=== PATIENT | female | born 1985 | race Caucasian/White ===

== ENCOUNTER 2017-10-25 09:16 | Outpatient (CLI) | payer OTHER | END 2017-10-25 09:25 | disposition home or self-care (01) | LOC: SONOGRAMA 09:16 | DX: N92.1 Excessive and frequent menstruation with irregular cycle (principal) ==

== ENCOUNTER 2018-09-09 10:39 | Outpatient (CLI) | payer OTHER | END 2018-09-09 10:42 | disposition home or self-care (01) | LOC: SONOGRAMA 10:39 | DX: E04.1 Nontoxic single thyroid nodule (principal) ==

== ENCOUNTER 2019-02-12 12:33 | Inpatient (IN) | payer OTHER ==
[~2019-02-12] VITALS: Ht 170.2 cm; Wt 80.7 kg
[2019-02-12] MEDS ORDERED: ALLEGRA ALLERGY60 MG PO (14:37)
[2019-02-20] MEDS ORDERED: PERCOCET 5-3251 EACH PO (10:27)
[2019-02-20] MEDS ORDERED: CALCITRIOL0.5 MCG PO (10:28)
[2019-02-20] MEDS ORDERED: SYNTHROID125 MCG PO (10:35)
== END 2019-02-20 13:06 | disposition home or self-care (01) | DRG 627 ==
LOC: O/R 02-19 08:19 → SURH 02-19 16:37
PROVIDERS: ADMIT Surgery
PROC: 0GTK0ZZ Resection of Thyroid Gland, Open Approach (ICD-10-PCS; principal; 2019-02-19 13:30)
DX: C73 Malignant neoplasm of thyroid gland (principal); J45.998 Other asthma

== ENCOUNTER 2020-10-06 18:56 | Emergency (ER) | payer OTHER ==
[~2020-10-06] VITALS: Ht 172.7 cm; Wt 76.2 kg
[~2020-10-06 18:56] MED LIST: ALLEGRA ALLERGY60 MG PO; CALCITRIOL0.5 MCG PO; PERCOCET 5-3251 EACH PO; SYNTHROID125 MCG PO
[2020-10-06] MEDS ORDERED: SYNTHROID150 MCG PO (19:08)
[2020-10-07] MEDS ORDERED: NAPROXEN375 MG PO (00:02)
[2020-10-07] MEDS ORDERED: PEPCID AC10 MG PO (00:02)
[2020-10-07] MEDS ORDERED: ZOFRAN4 MG PO (00:04)
== END 2020-10-07 00:45 | disposition home or self-care (01) ==
LOC: ER 18:56
DX: G43.109 Migraine with aura, not intractable, without status migrainosus (principal); F12.929 Cannabis use, unspecified with intoxication, unspecified; T40.7X5A Adverse effect of cannabis (derivatives), initial encounter; Y92.89 Other specified places as the place of occurrence of the external cause

== ENCOUNTER 2021-05-24 10:13 | Inpatient (IN) | payer OTHER ==
[~2021-05-24] VITALS: Ht 170.2 cm; Wt 73.9 kg
[~2021-05-24 10:13] MED LIST changes: +NAPROXEN375 MG PO; +PEPCID AC10 MG PO; +SYNTHROID150 MCG PO; +ZOFRAN4 MG PO
== END 2021-06-07 13:45 | disposition home or self-care (01) | DRG 373 ==
LOC: ER 10:13 → SURG 05-25 00:17 → SEC-K 05-25 00:17 → SURG 05-25 01:02
PROVIDERS: ADMIT Surgery; ATTEND Surgery
PROC: 0W9G30Z Drainage of Peritoneal Cavity with Drainage Device, Percutaneous Approach (ICD-10-PCS; principal; 2021-05-25)
PROC: 0W9J30Z Drainage of Pelvic Cavity with Drainage Device, Percutaneous Approach (ICD-10-PCS; 2021-05-25)
PROC: 0W9J30Z Drainage of Pelvic Cavity with Drainage Device, Percutaneous Approach (ICD-10-PCS; 2021-06-02)
PROC: 0YP Anatomical Regions, Lower Extremities, Removal (ICD-10-PCS; 2021-06-02)
PROC: 0WPJX0Z Removal of Drainage Device from Pelvic Cavity, External Approach (ICD-10-PCS; 2021-06-02)
DX: K35.33 Acute appendicitis with perforation, localized peritonitis, and gangrene, with abscess (principal); E03.8 Other specified hypothyroidism; Z20.822 Contact with and (suspected) exposure to COVID-19; B96.20 Unspecified Escherichia coli [E. coli] as the cause of diseases classified elsewhere; Z85.850 Personal history of malignant neoplasm of thyroid

== ENCOUNTER 2021-06-15 11:17 | Outpatient (CLI) | payer OTHER | END 2021-06-15 11:20 | disposition home or self-care (01) | LOC: LAB 11:17 | PROVIDERS: ATTEND Radiology Diagnostic Radiology | DX: R10.10 Upper abdominal pain, unspecified (principal) ==

== ENCOUNTER 2021-06-17 13:08 | Emergency (ER) | payer OTHER ==
[~2021-06-17] VITALS: Ht 170.2 cm; Wt 73.9 kg
== END 2021-06-17 22:13 | disposition home or self-care (01) ==
LOC: ER 13:08
DX: K52.89 Other specified noninfective gastroenteritis and colitis (principal); D72.829 Elevated white blood cell count, unspecified; E03.9 Hypothyroidism, unspecified; Z03.818 Encounter for observation for suspected exposure to other biological agents ruled out

== ENCOUNTER 2021-07-06 09:02 | Outpatient (CLI) | payer OTHER | END 2021-07-06 09:14 | disposition home or self-care (01) | LOC: TOM 09:02 | PROVIDERS: ATTEND Surgery | DX: K76.89 Other specified diseases of liver (principal); K35.33 Acute appendicitis with perforation, localized peritonitis, and gangrene, with abscess ==

== ENCOUNTER 2021-07-21 08:38 | Outpatient (CLI) | payer OTHER ==
[2021-07-27] MEDS ORDERED: ALLEGRA-D 12 H1 EACH PO (11:27)
[2021-07-27] MEDS ORDERED: CALTRATE 600 +1 EACH PO (11:27)
== END 2021-07-21 08:41 | disposition home or self-care (01) ==
LOC: SONOGRAMA 08:38
PROVIDERS: ATTEND Pathology Anatomic Pathology & Clinical Pathology
DX: R22.1 Localized swelling, mass and lump, neck (principal)

== ENCOUNTER 2021-08-02 06:05 | Inpatient (IN) | payer OTHER ==
[~2021-08-02] VITALS: Ht 170.2 cm; Wt 73.9 kg
[~2021-08-02 06:05] MED LIST changes: +ALLEGRA-D 12 H1 EACH PO; +CALTRATE 600 +1 EACH PO
[2021-08-02] MEDS ORDERED: INTESTINEX680 M1 (15:20)
[2021-08-02] MEDS ORDERED: ATENOLOL25 MG (15:20)
== END 2021-08-17 12:47 | disposition home or self-care (01) | DRG 330 ==
LOC: CIR.AMB 06:05 → SURG 15:00
PROVIDERS: ADMIT Surgery; ATTEND Surgery
PROC: 0WJJ4ZZ Inspection of Pelvic Cavity, Percutaneous Endoscopic Approach (ICD-10-PCS; 2021-08-02)
PROC: 0DQH4ZZ Repair Cecum, Percutaneous Endoscopic Approach (ICD-10-PCS; principal; 2021-08-02 08:30)
PROC: 02HV33Z Insertion of Infusion Device into Superior Vena Cava, Percutaneous Approach (ICD-10-PCS; 2021-08-03)
PROC: 4A12X4Z Monitoring of Cardiac Electrical Activity, External Approach (ICD-10-PCS; 2021-08-05)
PROC: 30233N1 Transfusion of Nonautologous Red Blood Cells into Peripheral Vein, Percutaneous Approach (ICD-10-PCS; 2021-08-07)
DX: K35.33 Acute appendicitis with perforation, localized peritonitis, and gangrene, with abscess (principal); K91.71 Accidental puncture and laceration of a digestive system organ or structure during a digestive system procedure; D62 Acute posthemorrhagic anemia; N92.1 Excessive and frequent menstruation with irregular cycle; R00.0 Tachycardia, unspecified; E03.9 Hypothyroidism, unspecified

== ENCOUNTER 2021-09-21 07:45 | Day surgery (SDC) | payer OTHER ==
[~2021-09-21 07:45] MED LIST changes: +ATENOLOL25 MG; +INTESTINEX680 M1
== END 2021-09-21 14:20 | disposition home or self-care (01) ==
LOC: AMB-ENDOS 07:45
PROVIDERS: ATTEND Surgery
DX: K52.89 Other specified noninfective gastroenteritis and colitis (principal); K64.8 Other hemorrhoids; Z20.822 Contact with and (suspected) exposure to COVID-19

== ENCOUNTER 2021-10-13 19:22 | Emergency (ER) | payer OTHER ==
[~2021-10-13] VITALS: Ht 170.2 cm; Wt 70.3 kg
== END 2021-10-13 23:15 | disposition home or self-care (01) ==
LOC: ER 19:22
DX: K52.89 Other specified noninfective gastroenteritis and colitis (principal)

== ENCOUNTER 2021-10-15 13:39 | Inpatient (IN) | payer OTHER ==
[~2021-10-15] VITALS: Ht 170.2 cm; Wt 70.3 kg
[2021-10-15] MEDS ORDERED: DICYCLOMINE HCL20 MG PO (14:39)
[2021-10-15] MEDS ORDERED: FAMOTIDINE20 MG PO (14:40)
[2021-10-15] MEDS ORDERED: PANTOPRAZOLE SO20 MG PO (14:40)
--- NOTE | 2021-10-15 14:40 | NUR ---
SE RECIBE PACIENTE ALERTA, ORIENTADA X 3 ESFERAS REFIERE TENER DOLOR ABDOMINAL DESDE KALE SE ESTIMAN S/V SE UBICA EN AREA DE OBSERVACION.
--- NOTE | 2021-10-15 15:34 | NUR ---
EVALUA PTE. SE ORIENTA A PTE SOBRE ORDENES MEDICAS Y TRATAMIENTO A SEGUIR. SE EXTRAEN MUESTRAS, SE CANALIZA PTE Y SE ADMINISTRAN MEDICAMENTOS BAJO MEDIDAS ASEPTICAS POR TULIO. SE LE ENTREGA A PTE U/A PARA COLECCION. SE COORDINA CT DE PTE.
--- NOTE | 2021-10-15 19:07 | NUR ---
SE REALIZA EKG MUESTRAS DE IRENE CULTIVOS DE IRENE Y ADMINISTRACION DE MEDICAMENTOS. EKG EVALUADO POR DR. RILEY.
[2021-10-24] MEDS ORDERED: INTESTINEX680 M1 (08:35)
[2021-11-08] MEDS ORDERED: INTEGRA PLUS C1 EACH PO (08:53)
== END 2021-11-08 12:12 | disposition home or self-care (01) | DRG 372 ==
LOC: ER 13:39 → SURH 23:45
PROVIDERS: ADMIT Surgery; ATTEND Surgery
PROC: BW21YZZ Computerized Tomography (CT Scan) of Abdomen and Pelvis using Other Contrast (ICD-10-PCS; principal; 2021-10-15)
PROC: 0W9F30Z Drainage of Abdominal Wall with Drainage Device, Percutaneous Approach (ICD-10-PCS; 2021-10-17)
PROC: 02HV33Z Insertion of Infusion Device into Superior Vena Cava, Percutaneous Approach (ICD-10-PCS; 2021-10-17)
PROC: 8E0ZXY6 Isolation (ICD-10-PCS; 2021-10-19)
PROC: BW21Y0Z Computerized Tomography (CT Scan) of Abdomen and Pelvis using Other Contrast, Unenhanced and Enhanced (ICD-10-PCS; 2021-10-23)
PROC: 0W9F30Z Drainage of Abdominal Wall with Drainage Device, Percutaneous Approach (ICD-10-PCS; 2021-10-26)
PROC: 0W9J30Z Drainage of Pelvic Cavity with Drainage Device, Percutaneous Approach (ICD-10-PCS; 2021-10-26)
PROC: BW21ZZZ Computerized Tomography (CT Scan) of Abdomen and Pelvis (ICD-10-PCS; 2021-10-26)
PROC: BU4CZZZ Ultrasonography of Uterus and Ovaries (ICD-10-PCS; 2021-10-27)
PROC: BW21Y0Z Computerized Tomography (CT Scan) of Abdomen and Pelvis using Other Contrast, Unenhanced and Enhanced (ICD-10-PCS; 2021-10-30)
PROC: BW40ZZZ Ultrasonography of Abdomen (ICD-10-PCS; 2021-11-02)
PROC: BW21ZZZ Computerized Tomography (CT Scan) of Abdomen and Pelvis (ICD-10-PCS; 2021-11-07)
PROC: BW21Y0Z Computerized Tomography (CT Scan) of Abdomen and Pelvis using Other Contrast, Unenhanced and Enhanced (ICD-10-PCS; 2021-11-07)
DX: K35.33 Acute appendicitis with perforation, localized peritonitis, and gangrene, with abscess (principal); Z16.12 Extended spectrum beta lactamase (ESBL) resistance; D50.0 Iron deficiency anemia secondary to blood loss (chronic); F12.929 Cannabis use, unspecified with intoxication, unspecified; C80.1 Malignant (primary) neoplasm, unspecified; D63.0 Anemia in neoplastic disease; D63.8 Anemia in other chronic diseases classified elsewhere; D53.0 Protein deficiency anemia; I45.6 Pre-excitation syndrome; K52.89 Other specified noninfective gastroenteritis and colitis; J45.909 Unspecified asthma, uncomplicated; B96.1 Klebsiella pneumoniae [K. pneumoniae] as the cause of diseases classified elsewhere; B95.4 Other streptococcus as the cause of diseases classified elsewhere; E03.8 Other specified hypothyroidism

== ENCOUNTER 2021-12-21 11:30 | Inpatient (IN) | payer OTHER ==
[~2021-12-21] VITALS: Ht 172.7 cm; Wt 63.5 kg
[~2021-12-21 11:30] MED LIST changes: +DICYCLOMINE HCL20 MG PO; +FAMOTIDINE20 MG PO; +INTEGRA PLUS C1 EACH PO; +PANTOPRAZOLE SO20 MG PO
[2021-12-30] MEDS ORDERED: FLONASE16 GM (09:09)
[2021-12-30] MEDS ORDERED: PANTOPRAZOLE SO20 MG (09:09)
[2021-12-30] MEDS ORDERED: FAMOTIDINE20 MG (09:09)
[2022-01-05] MEDS ORDERED: ULTRAM50 MG PO (10:47)
[2022-01-05] MEDS ORDERED: CARAFATE1 GM PO (10:48)
[2022-01-05] MEDS ORDERED: PANTOPRAZOLE SO40 M2 PO (10:49)
[2022-01-05] MEDS ORDERED: CLOTRIMAZOLE10 MG MM (11:27)
== END 2022-01-05 15:32 | disposition home or self-care (01) | DRG 331 ==
LOC: SURH 12-23 11:30 → O/R 12-30 06:06 → SURH 12-30 11:30
PROVIDERS: ADMIT Surgery; ATTEND Surgery
PROC: 0DTF4ZZ Resection of Right Large Intestine, Percutaneous Endoscopic Approach (ICD-10-PCS; principal; 2021-12-30 17:15)
DX: K35.33 Acute appendicitis with perforation, localized peritonitis, and gangrene, with abscess (principal); N73.6 Female pelvic peritoneal adhesions (postinfective); R59.0 Localized enlarged lymph nodes; R19.4 Change in bowel habit; K52.89 Other specified noninfective gastroenteritis and colitis; R10.9 Unspecified abdominal pain; I45.6 Pre-excitation syndrome; I10 Essential (primary) hypertension; Z20.822 Contact with and (suspected) exposure to COVID-19

== ENCOUNTER 2022-04-30 01:05 | Inpatient (IN) | payer OTHER ==
[~2022-04-30] VITALS: Ht 165.1 cm; Wt 59.0 kg
[~2022-04-30 01:05] MED LIST changes: +CARAFATE1 GM PO; +CLOTRIMAZOLE10 MG MM; +FAMOTIDINE20 MG; +FLONASE16 GM; +PANTOPRAZOLE SO20 MG; +PANTOPRAZOLE SO40 M2 PO; +ULTRAM50 MG PO
--- NOTE | 2022-04-30 01:40 | NUR ---
PTE REFIERE DOLOR EN AREA EPIGASTRICA DESDE KALE EN LA MANANA Y VOMITOS X1 EN LA TARDE DE KALE.
== END 2022-05-05 11:41 | disposition home or self-care (01) | DRG 419 ==
LOC: ER 01:05 → MEDJ 13:04
PROVIDERS: ADMIT Internal Medicine; ATTEND Internal Medicine
PROC: BW21ZZZ Computerized Tomography (CT Scan) of Abdomen and Pelvis (ICD-10-PCS; 2022-04-30)
PROC: BF37ZZZ Magnetic Resonance Imaging (MRI) of Pancreas (ICD-10-PCS; 2022-04-30)
PROC: 0FT44ZZ Resection of Gallbladder, Percutaneous Endoscopic Approach (ICD-10-PCS; principal; 2022-05-04)
PROC: BF532Z0 Other Imaging of Gallbladder and Bile Ducts using Fluorescing Agent, Intraoperative (ICD-10-PCS; 2022-05-04)
DX: K80.00 Calculus of gallbladder with acute cholecystitis without obstruction (principal); R10.9 Unspecified abdominal pain; E83.51 Hypocalcemia; E03.9 Hypothyroidism, unspecified; C73 Malignant neoplasm of thyroid gland; I45.6 Pre-excitation syndrome; Z20.822 Contact with and (suspected) exposure to COVID-19

== ENCOUNTER 2024-07-25 08:00 | Outpatient (CLI) | payer OTHER ==
[~2024-07-25] VITALS: Ht 170.2 cm; Wt 83.9 kg
[~2024-07-25 08:00] MED LIST changes: +DICLOFENAC POTA50 MG PO
[2024-07-25 09:48] VITALS: BP 113/77
[2024-07-25 09:49] LABS: HEMATOCRIT 35.8 % (36.0-45.00); HEMOGLOBIN 12.2 g/dL (12.0-15.00); MEAN CELL VOLUME 79.1 fL (80.00-100.00); MEAN CORPUSCULAR HEMOGLOBIN 26.9 pg (27.00-32.0); PLATELET COUNT 307 K/uL (150-450); RED BLOOD COUNT 4.53 M/uL (4.00-6.00); RED CELL DISTRIBUTION WIDTH 15.2 % (11.5-14.5)
[2024-07-25 10:11] LABS: INR 0.97; PARTIAL THROMBOPLASTIN TIME 28.6 SECONDS (22.0-34.0); PROTHROMBIN TIME 10.6 SECONDS (9.0-11.5)
[2024-07-25 10:24] LABS: ALBUMIN 3.8 gm/dL (3.4-5.0); BILIRUBIN TOTAL 1.05 mg/dL (0.3-1.2); CALCIUM 8.4 mg/dL (8.5-10.1); CREATININE SERUM 0.76 mg/dL (0.55-1.02); GFR 83.86; GLOBULINA 3.8 G/DL (2.4-3.5); POTASSIUM 4.24 mEq/L (3.5-5.1); TOTAL PROTEIN 7.6 gm/dL (6.4-8.2)
== END 2024-07-25 08:01 | disposition home or self-care (01) ==
LOC: RAD 08:00 → EDSTATUS 07-30 07:45 → SURH 07-30 07:45 → CIR.AMB 07-30 07:45
PROVIDERS: ATTEND Obstetrics & Gynecology
DX: N83.201 Unspecified ovarian cyst, right side (principal)

== ENCOUNTER 2024-08-27 07:36 | Day surgery (SDC) | payer OTHER ==
[2024-08-22 07:14] LABS: HEMATOCRIT 35.3 % (36.0-45.00); HEMOGLOBIN 12.1 g/dL (12.0-15.00); MEAN CELL VOLUME 79.1 fL (80.00-100.00); MEAN CORPUSCULAR HEMOGLOBIN 27.1 pg (27.00-32.0); MEAN CORPUSCULAR HGB CONC 34.2 g/dl (32.0-36.0); PLATELET COUNT 305 K/uL (150-450); RED BLOOD COUNT 4.46 M/uL (4.00-6.00); RED CELL DISTRIBUTION WIDTH 14.6 % (11.5-14.5)
[2024-08-22 07:24] LABS: INR 0.96; PARTIAL THROMBOPLASTIN TIME 27.9 SECONDS (22.0-34.0); PROTHROMBIN TIME 10.5 SECONDS (9.0-11.5)
[2024-08-22 07:51] LABS: ALBUMIN 3.5 gm/dL (3.4-5.0); BILIRUBIN TOTAL 0.75 mg/dL (0.3-1.2); CALCIUM 8.1 mg/dL (8.5-10.1); CREATININE SERUM 0.86 mg/dL (0.55-1.02); GFR 72.71; GLOBULINA 3.5 G/DL (2.4-3.5); POTASSIUM 3.98 mEq/L (3.5-5.1)
[2024-08-22 12:37] VITALS: BP 113/74
[~2024-08-27] VITALS: Ht 170.2 cm; Wt 80.7 kg
[2024-08-27] MEDS ORDERED: CEFAZOLIN SODIUM 1,000 MG VIAL IV ONE (19:45)
[2024-08-27] MEDS ORDERED: POVIDONE-IODINE 118 ML BOTT TOP ONE (19:45)
[2024-08-27] MEDS ORDERED: SUGAMMADEX SODIUM 200 MG/2 ML VIAL IV ONE (20:30)
[2024-08-27] MEDS ORDERED: PROMETHAZINE HCL 50 MG/ML AMPUL IM ONE (20:45)
[2024-08-27] MEDS ORDERED: MORPHINE SULFATE 4 MG/ML VIAL IV PRN (20:45)
[2024-08-27] MEDS ORDERED: MORPHINE SULFATE 4 MG/ML VIAL IV ONE ×2 (21:00→21:30)
== END 2024-08-27 22:30 | disposition home or self-care (01) ==
LOC: CIR.AMB 07:36
PROVIDERS: ATTEND Obstetrics & Gynecology
DX: N83.8 Other noninflammatory disorders of ovary, fallopian tube and broad ligament (principal); N93.8 Other specified abnormal uterine and vaginal bleeding; R10.2 Pelvic and perineal pain; N83.9 Noninflammatory disorder of ovary, fallopian tube and broad ligament, unspecified; Z88.2 Allergy status to sulfonamides

== ENCOUNTER 2025-03-05 08:16 | Outpatient (CLI) | payer OTHER | END 2025-03-05 08:18 | disposition home or self-care (01) | LOC: SONOGRAMA 08:16 | PROVIDERS: ATTEND Pathology Anatomic Pathology & Clinical Pathology | DX: C73 Malignant neoplasm of thyroid gland (principal); C77.0 Secondary and unspecified malignant neoplasm of lymph nodes of head, face and neck; R59.0 Localized enlarged lymph nodes; E89.0 Postprocedural hypothyroidism ==

== ENCOUNTER 2025-05-23 18:00 | Emergency (ER) | payer OTHER ==
[~2025-05-23] VITALS: Ht 172.7 cm; Wt 79.8 kg
[2025-05-23] MEDS ORDERED: FUSION PLUS CA1 EACH PO (18:23)
[2025-05-23 21:30] LABS: FECAL LEUKOCYTES NEGATIVE (NEGATIVE); ob NEGATIVE (NEGATIVE)
== END 2025-05-23 22:00 | disposition home or self-care (01) ==
LOC: ER 18:00
PROVIDERS: General Practice
DX: K92.1 Melena (principal); Z88.2 Allergy status to sulfonamides; Z91.048 Other nonmedicinal substance allergy status

== ENCOUNTER 2025-06-03 12:30 | Inpatient (IN) | payer OTHER ==
[~2025-06-03] VITALS: Ht 243.8 cm; Wt 76.2 kg
[~2025-06-03 12:30] MED LIST changes: +FUSION PLUS CA1 EACH PO
[2025-06-03 13:11] VITALS: BP 102/65
[2025-06-03 13:38] LABS: RH POSITIVE
[2025-06-10] MEDS ORDERED: BUPIVACAINE HCL/MPF 0.5% 30ML VIAL ONE ×2 (06:56→07:11)
[2025-06-10] MEDS ORDERED: LIDOCAINE HCL 1%/EPINEPHRINE 20ML VIAL IJ ONE ×2 (06:56→07:11)
[2025-06-10] MEDS ORDERED: POVIDONE-IODINE 118 ML BOTT TOP ONE (07:11)
[2025-06-10] MEDS ORDERED: CEFTRIAXONE SODIUM 2,000 MG VIAL ONE (07:12)
[2025-06-10] MEDS ORDERED: METRONIDAZOLE/SODIUM CHLORIDE 500 MG/100 ML PIGGYBACK IV ONE (07:12)
[2025-06-10] MEDS ORDERED: VISTASEAL DUAL APPICATOR 1 EACH APPL TOP ONE (08:00)
[2025-06-10] MEDS ORDERED: THROMBIN,HU/FIBRINOGEN/CALCIUM 10 ML SYRINGE TOP ONE (08:01)
[2025-06-10] MEDS ORDERED: SUGAMMADEX SODIUM 200 MG/2 ML VIAL IV ONE (11:00)
[2025-06-10] MEDS ORDERED: CELECOXIB 200 MG CAPSULE PO STA (11:13)
[2025-06-10] MEDS ORDERED: ONDANSETRON HCL 2 MG/ML VIAL IV SCH (12:00)
[2025-06-10] MEDS ORDERED: ACETAMINOPHEN 325 MG TABLET PO SCH (12:00)
[2025-06-10 12:45] LABS: BASO % 0.5 % (0.1-1.2); EOS # 0.19 (0.04-0.54); EOS % 2.1 % (0.7-7.0); LYMPH # 2.19 (1.18-3.74); LYMPH % 24.7 % (19.3-53.1); MEAN PLATELET VOLUME 10.10 fl (9.4-12.4); MONO # 0.52 (0.24-0.82); MONO % 5.9 % (4.7-12.5); NEUT # 5.92 (1.56-6.13); NEUT % 66.6 % (34.0-71.1); RED CELL DISTRIBUTION WIDTH 13.3 % (11.6-14.4)
[2025-06-10] MEDS ORDERED: GABAPENTIN 100 MG CAPSULE PO SCH (13:00)
[2025-06-10] MEDS ORDERED: RINGERS SOLUTION,LACTATED 1,000 ML IV SCH ×2 (13:00→21:00)
[2025-06-10 13:33] LABS: BUN CREA RATIO 11.0 (7.0-25.0); CREATININE SERUM 0.88 mg/dL (0.55-1.02); GFR 70.47; GLUCOSE FASTING 138.0 mg/dL (65-100); OSMOLALITY SERUM 286.0 MOSM/KG (275-295)
[2025-06-10] MEDS ORDERED: GABAPENTIN 100 MG CAPSULE PO ONE (13:36)
[2025-06-10] MEDS ORDERED: CELECOXIB 200 MG CAPSULE PO ONE (13:37)
[2025-06-10] MEDS ORDERED: ACETAMINOPHEN 325 MG TABLET PO ONE (13:37)
[2025-06-10] MEDS ORDERED: CALCIUM GLUCONATE 100 MG/ML VIAL IV ONE (14:00)
[2025-06-10 16:06] VITALS: BP 102/65
[2025-06-10 17:53] LABS: BASO % 0.4 % (0.1-1.2); EOS # 0.04 (0.04-0.54); EOS % 0.3 % (0.7-7.0); LYMPH # 1.32 (1.18-3.74); LYMPH % 10.7 % (19.3-53.1); MEAN PLATELET VOLUME 10.40 fl (9.4-12.4); MONO # 0.56 (0.24-0.82); MONO % 4.6 % (4.7-12.5); NEUT # 10.28 (1.56-6.13); NEUT % 83.7 % (34.0-71.1); RED CELL DISTRIBUTION WIDTH 13.4 % (11.6-14.4)
[2025-06-10 18:04] VITALS: BP 100/67; O2SAT 99
[2025-06-10 18:41] LABS: BUN CREA RATIO 11.0 (7.0-25.0); CREATININE SERUM 0.76 mg/dL (0.55-1.02); GFR 83.46; GLUCOSE FASTING 90.0 mg/dL (65-100); OSMOLALITY SERUM 283.0 MOSM/KG (275-295)
[2025-06-10 21:00] VITALS: O2SAT 97
[2025-06-10] MEDS ORDERED: CALCITRIOL 0.5 MCG CAPSULE PO SCH (21:00)
[2025-06-11 00:29] VITALS: O2SAT 96
[2025-06-11 01:40] VITALS: BP 100/62; O2SAT 100
[2025-06-11 05:18] VITALS: O2SAT 96
[2025-06-11] MEDS ORDERED: LEVOTHYROXINE SODIUM 125 MCG TABLET PO SCH (06:00)
[2025-06-11 06:50] LABS: BASO % 0.2 % (0.1-1.2); EOS # 0.19 (0.04-0.54); EOS % 2.3 % (0.7-7.0); LYMPH # 1.26 (1.18-3.74); LYMPH % 15.1 % (19.3-53.1); MEAN PLATELET VOLUME 10.20 fl (9.4-12.4); MONO # 0.47 (0.24-0.82); MONO % 5.6 % (4.7-12.5); NEUT # 6.36 (1.56-6.13); NEUT % 76.3 % (34.0-71.1); RED CELL DISTRIBUTION WIDTH 13.4 % (11.6-14.4)
[2025-06-11 07:19] LABS: BUN CREA RATIO 7.0 (7.0-25.0); CREATININE SERUM 0.84 mg/dL (0.55-1.02); GFR 74.35; GLUCOSE FASTING 102.0 mg/dL (65-100); OSMOLALITY SERUM 281.0 MOSM/KG (275-295)
[2025-06-11 08:00] VITALS: BP 100/67; O2SAT 97
== END 2025-06-11 12:14 | disposition home or self-care (01) | DRG 743 ==
LOC: O/R 06-10 06:00 → OB/GYN 06-10 07:00 → O/R 06-10 08:26 → OB/GYN 06-10 12:30 → SURH 06-10 15:40
PROVIDERS: Internal Medicine Geriatric Medicine; Student in an Organized Health Care Education/Training Program; Surgery; Urology; ADMIT Obstetrics & Gynecology Gynecology; ATTEND Obstetrics & Gynecology Gynecology
PROC: 0TNB4ZZ Release Bladder, Percutaneous Endoscopic Approach (ICD-10-PCS; 2025-06-10)
PROC: 0UN14ZZ Release Left Ovary, Percutaneous Endoscopic Approach (ICD-10-PCS; 2025-06-10)
PROC: 0UN94ZZ Release Uterus, Percutaneous Endoscopic Approach (ICD-10-PCS; 2025-06-10)
PROC: 0DNP4ZZ Release Rectum, Percutaneous Endoscopic Approach (ICD-10-PCS; 2025-06-10)
PROC: 0DNN4ZZ Release Sigmoid Colon, Percutaneous Endoscopic Approach (ICD-10-PCS; 2025-06-10)
PROC: 0TN74ZZ Release Left Ureter, Percutaneous Endoscopic Approach (ICD-10-PCS; 2025-06-10)
PROC: 0TN64ZZ Release Right Ureter, Percutaneous Endoscopic Approach (ICD-10-PCS; 2025-06-10)
PROC: 0UBF4ZZ Excision of Cul-de-sac, Percutaneous Endoscopic Approach (ICD-10-PCS; 2025-06-10)
PROC: 0UB44ZZ Excision of Uterine Supporting Structure, Percutaneous Endoscopic Approach (ICD-10-PCS; 2025-06-10)
PROC: 0DBP4ZZ Excision of Rectum, Percutaneous Endoscopic Approach (ICD-10-PCS; 2025-06-10)
PROC: 0WBH4ZZ Excision of Retroperitoneum, Percutaneous Endoscopic Approach (ICD-10-PCS; 2025-06-10)
PROC: 0TB74ZZ Excision of Left Ureter, Percutaneous Endoscopic Approach (ICD-10-PCS; 2025-06-10)
PROC: 0TB64ZZ Excision of Right Ureter, Percutaneous Endoscopic Approach (ICD-10-PCS; 2025-06-10)
PROC: 0DJD8ZZ Inspection of Lower Intestinal Tract, Via Natural or Artificial Opening Endoscopic (ICD-10-PCS; 2025-06-10)
PROC: 0T788DZ Dilation of Bilateral Ureters with Intraluminal Device, Via Natural or Artificial Opening Endoscopic (ICD-10-PCS; 2025-06-10)
PROC: 4A12X4Z Monitoring of Cardiac Electrical Activity, External Approach (ICD-10-PCS; 2025-06-10)
PROC: 0UT94ZZ Resection of Uterus, Percutaneous Endoscopic Approach (ICD-10-PCS; principal; 2025-06-10 07:00)
PROC: 0UT74ZZ Resection of Bilateral Fallopian Tubes, Percutaneous Endoscopic Approach (ICD-10-PCS; 2025-06-10 07:00)
PROC: 0UT24ZZ Resection of Bilateral Ovaries, Percutaneous Endoscopic Approach (ICD-10-PCS; 2025-06-10 07:00)
DX: N72 Inflammatory disease of cervix uteri (principal); N80.03 Adenomyosis of the uterus; N80.A63 Endometriosis of bilateral ureters, unspecified depth; N80.399 Endometriosis of the pelvic peritoneum, other specified sites, unspecified depth; N80.519 Endometriosis of the rectum, unspecified depth; N80.3C2 Endometriosis of the left uterosacral ligament, unspecified depth; K66.0 Peritoneal adhesions (postprocedural) (postinfection)